=== PATIENT | female | born 1955 | race African-American/Black ===

== ENCOUNTER 2020-06-20 12:52 | Outpatient (REF) | payer MEDICAID, SELFPAY ==
[2020-06-20 14:43] LABS: Alanine Aminotransferase 25 U/L (0-31); Albumin Level 4.5 g/dL (3.5-5.0); Alkaline Phosphatase 67 U/L (39-117); Anion Gap 18 (12-20); Aspartate Amino Transferase 27 U/L (5-31); Bilirubin Total 1.2 mg/dL (0.0-1.0); Blood Urea Nitrogen 13 mg/dL (9-16); Calcium 9.2 mg/dL (8.4-10.2); Carbon Dioxide 21 mmol/L (22-29); Chloride 106 mmol/L (96-108); Estimated Glomerular Filt Rate > 60; Glucose Random 81 mg/dL (60-115); Potassium 4.4 mmol/L (3.3-5.1); Sodium 141 mmol/L (135-145); Total Protein 7.3 g/dL (6.5-8.0)
[2020-06-20 14:52] LABS: Free T4 (Free Thyroxine) 0.76 ng/dL (0.71-1.85); Thyroid Stimulating Hormone 3.14 uIU/mL (0.32-4.0)
== END 2020-06-20 12:53 | disposition home or self-care (01) ==
LOC: HO.10HDL 12:52
PROVIDERS: Visit Provider Internal Medicine
DX: I25.10 Atherosclerotic heart disease of native coronary artery without angina pectoris (principal); E78.00 Pure hypercholesterolemia, unspecified; I10 Essential (primary) hypertension
CPT/HCPCS: 36415; 80053; 84439; 84443

== ENCOUNTER 2020-12-06 12:27 | Outpatient (REF) | payer MEDICAID, SELFPAY ==
--- NOTE | ~2020-12-06 | XR_ITS ---
EXAMINATION: XR CHEST CLINICAL INFORMATION: Cough. COMPARISON: Chest radiograph dated 08/13/2007. TECHNIQUE: 2 views of the chest were obtained. FINDINGS: No focal airspace consolidation. No pleural effusion or pneumothorax. Stable cardiomediastinal silhouette. Sternal wires and mediastinal surgical clips are redemonstrated. No acute osseous abnormality. XR/XR chest 2V IMPRESSION: No acute cardiopulmonary findings.
[2020-12-06 14:00] LABS: MANUAL DIFF FLAG NO
[2020-12-06 14:24] LABS: Alanine Aminotransferase 27 U/L (0-31); Albumin Level 4.6 g/dL (3.5-5.0); Alkaline Phosphatase 76 U/L (39-117); Anion Gap 15 (12-20); Aspartate Amino Transferase 24 U/L (5-31); Bilirubin Total 1.5 mg/dL (0.0-1.0); Blood Urea Nitrogen 13 mg/dL (9-16); Calcium 9.4 mg/dL (8.4-10.2); Carbon Dioxide 24 mmol/L (22-29); Chloride 107 mmol/L (96-108); Cholesterol 166 mg/dL; Estimated Glomerular Filt Rate > 60; Glucose Random 81 mg/dL (60-115); HDL Cholesterol 61 mg/dL; LDL Cholesterol Calculated 88 mg/dl; Potassium 4.1 mmol/L (3.3-5.1); Sodium 142 mmol/L (135-145); Triglycerides 85 mg/dL
[2020-12-06 14:41] LABS: Basophils Percent Auto 0.8 % (0-2); Eosinophils Absolute Auto 0.1 X10*3/uL (0.0-0.4); Eosinophils Percent Auto 1.8 % (0-4); Hematocrit 41.8 % (37-47); Hemoglobin 13.9 g/dl (12.0-16.0); Imm Gran Abs Auto 0.01 X10*3/uL (0.00-0.03); Imm Gran Pct Auto 0.3 % (0.0-0.4); Lymphocytes Percent Auto 51.3 % (20-40); Mean Corpuscular HGB Conc 33.3 g/dl (31.0-35.0); Mean Corpuscular Hemoglobin 30.5 pg (27.0-33.0); Mean Corpuscular Volume 91.9 fL (80-98); Mean Platelet Volume 10.4 fL (9.4-12.3); Monocytes Absolute Auto 0.3 X10*3/uL (0.1-1.2); Monocytes Percent Auto 7.3 % (2-11); Neutrophils Absolute Auto 1.5 X10*3/uL (2.0-8.3); Neutrophils Percent Auto 38.5 % (45-73); Platelet Count 195 X10*3/uL (160-400); Red Blood Count 4.55 X10*6/uL (4.20-5.50); Red Cell Distribution Width 12.1 % (11.0-16.0); White Blood Count 3.8 X10*3/uL (4.8-10.8)
[2020-12-06 14:47] LABS: Free T4 (Free Thyroxine) 0.83 ng/dL (0.71-1.85); Thyroid Stimulating Hormone 1.68 uIU/mL (0.32-4.0)
[2020-12-06 14:50] LABS: Vitamin B12 726 pg/mL (200-900)
== END 2020-12-06 12:28 | disposition home or self-care (01) ==
LOC: HO.10HDL 12:27
PROVIDERS: Visit Provider Internal Medicine
DX: R05 Cough (principal); I25.10 Atherosclerotic heart disease of native coronary artery without angina pectoris; E78.00 Pure hypercholesterolemia, unspecified; E03.9 Hypothyroidism, unspecified; M19.90 Unspecified osteoarthritis, unspecified site
CPT/HCPCS: 36415; 71046; 80053; 80061; 82607; 84439; 84443; 85025

== ENCOUNTER 2021-05-10 15:31 | Outpatient (REF) | payer MEDICAID, SELFPAY ==
--- NOTE | ~2021-05-10 | XR_ITS ---
EXAMINATION: XR SHOULDER, RIGHT CLINICAL INFORMATION: Right shoulder pain COMPARISON: None TECHNIQUE: The right shoulder is imaged in 4 views. FINDINGS: There is no fracture, dislocation, destructive process. Glenohumeral joint is normal. The acromioclavicular alignment is normal. There is spurring from the inferior acromion and the inferior acromioclavicular joint which may place patient at risk for impingement and rotator cuff degeneration. There are no visible rotator cuff calcifications. Sternotomy wires and mediastinal clips are noted chest. XR/XR shoulder RT min 2V IMPRESSION: Normal right shoulder.
== END 2021-05-10 15:32 | disposition home or self-care (01) ==
LOC: HO.XRAY 15:31
PROVIDERS: PCP Internal Medicine; Visit Provider Internal Medicine
DX: M25.511 Pain in right shoulder (principal)
CPT/HCPCS: 73030

== ENCOUNTER 2022-01-28 13:09 | Outpatient (REF) | payer MEDICAID, SELFPAY | END 2022-01-28 13:10 | disposition home or self-care (01) | LOC: HO.10HDL 13:09 | PROVIDERS: Visit Provider Internal Medicine | DX: Z13.89 Encounter for screening for other disorder (principal) ==

== ENCOUNTER 2022-05-07 12:51 | Outpatient (REF) | payer MEDICARE, MEDICAID, SELFPAY ==
[2022-05-07 13:36] LABS: MANUAL DIFF FLAG NO
[2022-05-07 13:39] LABS: Basophils Percent Auto 0.8 % (0-2); Eosinophils Absolute Auto 0.2 X10*3/uL (0.0-0.4); Eosinophils Percent Auto 4.5 % (0-4); Hematocrit 42.1 % (37.0-47.0); Hemoglobin 14.1 g/dl (12.0-16.0); Imm Gran Abs Auto 0.02 X10*3/uL (0.00-0.03); Imm Gran Pct Auto 0.6 % (0.0-0.4); Lymphocytes Absolute Auto 1.7 X10*3/uL (1.2-4.9); Lymphocytes Percent Auto 46.8 % (20-40); Mean Corpuscular HGB Conc 33.5 g/dl (31.0-35.0); Mean Corpuscular Hemoglobin 30.7 pg (27.0-33.0); Mean Corpuscular Volume 91.7 fL (80.0-98.0); Mean Platelet Volume 9.9 fL (9.4-12.3); Monocytes Absolute Auto 0.3 X10*3/uL (0.1-1.2); Monocytes Percent Auto 8.1 % (2-11); Neutrophils Absolute Auto 1.4 x10*3/uL (2.0-8.3); Neutrophils Percent Auto 39.2 % (45-73); Platelet Count 177 X10*3/uL (160-400); Red Blood Count 4.59 X10*6/uL (4.20-5.50); White Blood Count 3.6 X10*3/uL (4.8-10.8)
[2022-05-07 14:28] LABS: Alanine Aminotransferase 30 U/L (0-31); Albumin Level 4.1 g/dL (3.5-5.0); Alkaline Phosphatase 75 U/L (39-117); Anion Gap 14 (12-20); Aspartate Amino Transferase 30 U/L (5-31); Bilirubin Total 1.2 mg/dL (0.0-1.0); Blood Urea Nitrogen 13 mg/dL (9-16); Calcium 9.1 mg/dL (8.4-10.2); Carbon Dioxide 24 mmol/L (22-29); Chloride 110 mmol/L (96-108); Estimated Glomerular Filt Rate > 60; Glucose Random 84 mg/dL (60-115); Potassium 4.2 mmol/L (3.3-5.1); Sodium 144 mmol/L (135-145); Total Protein 6.4 g/dL (6.5-8.0)
[2022-05-07 14:38] LABS: Free T4 (Free Thyroxine) 0.83 ng/dL (0.71-1.85); Thyroid Stimulating Hormone 2.48 uIU/mL (0.32-4.0)
== END 2022-05-07 12:52 | disposition home or self-care (01) ==
LOC: HO.10HDL 12:51
PROVIDERS: Visit Provider Internal Medicine
DX: I25.10 Atherosclerotic heart disease of native coronary artery without angina pectoris (principal); I10 Essential (primary) hypertension; E78.00 Pure hypercholesterolemia, unspecified; E03.9 Hypothyroidism, unspecified
CPT/HCPCS: 36415; 80053; 84439; 84443; 85025

== ENCOUNTER 2022-08-12 12:38 | Outpatient (REF) | payer MEDICARE, MEDICAID, SELFPAY ==
[2022-08-12 13:44] LABS: MANUAL DIFF FLAG NO
[2022-08-12 13:57] LABS: Basophils Percent Auto 0.7 % (0-2); Eosinophils Absolute Auto 0.1 X10*3/uL (0.0-0.4); Eosinophils Percent Auto 2.7 % (0-4); Hematocrit 43.7 % (37.0-47.0); Hemoglobin 14.7 g/dl (12.0-16.0); Imm Gran Abs Auto 0.01 X10*3/uL (0.00-0.03); Imm Gran Pct Auto 0.2 % (0.0-0.4); Lymphocytes Absolute Auto 1.8 X10*3/uL (1.2-4.9); Lymphocytes Percent Auto 44.6 % (20-40); Mean Corpuscular HGB Conc 33.6 g/dl (31.0-35.0); Mean Corpuscular Hemoglobin 31.1 pg (27.0-33.0); Mean Corpuscular Volume 92.6 fL (80.0-98.0); Mean Platelet Volume 10.2 fL (9.4-12.3); Monocytes Absolute Auto 0.3 X10*3/uL (0.1-1.2); Monocytes Percent Auto 7.6 % (2-11); Neutrophils Absolute Auto 1.8 x10*3/uL (2.0-8.3); Neutrophils Percent Auto 44.2 % (45-73); Platelet Count 185 X10*3/uL (160-400); Red Blood Count 4.72 X10*6/uL (4.20-5.50); Red Cell Distribution Width 12.1 % (11.0-16.0); White Blood Count 4.1 X10*3/uL (4.8-10.8)
[2022-08-12 14:33] LABS: Alanine Aminotransferase 27 U/L (0-31); Albumin Level 4.3 g/dL (3.5-5.0); Alkaline Phosphatase 63 U/L (39-117); Anion Gap 12 (12-20); Aspartate Amino Transferase 27 U/L (5-31); Bilirubin Total 1.8 mg/dL (0.0-1.0); Blood Urea Nitrogen 14 mg/dL (9-16); Calcium 9.4 mg/dL (8.4-10.2); Carbon Dioxide 25 mmol/L (22-29); Chloride 109 mmol/L (96-108); Cholesterol 191 mg/dL; Estimated Glomerular Filt Rate > 60; Glucose Fasting 81 mg/dL (60-99); HDL Cholesterol 61 mg/dL; LDL Cholesterol Calculated 110 mg/dl; Potassium 4.1 mmol/L (3.3-5.1); Sodium 142 mmol/L (135-145); Total Protein 6.8 g/dL (6.5-8.0); Triglycerides 103 mg/dL
[2022-08-12 14:49] LABS: Free T4 (Free Thyroxine) 0.79 ng/dL (0.71-1.85); Thyroid Stimulating Hormone 2.19 uIU/mL (0.32-4.0)
== END 2022-08-12 12:39 | disposition home or self-care (01) ==
LOC: HO.10HDL 12:38
PROVIDERS: Visit Provider Internal Medicine
DX: I25.10 Atherosclerotic heart disease of native coronary artery without angina pectoris (principal); E03.9 Hypothyroidism, unspecified; E78.00 Pure hypercholesterolemia, unspecified
CPT/HCPCS: 36415; 80053; 80061; 84439; 84443; 85025

== ENCOUNTER 2023-06-15 12:22 | Outpatient (REF) | payer MEDICARE, SELFPAY ==
[2023-06-15 14:47] LABS: Anion Gap 11 (12-20); Blood Urea Nitrogen 14 mg/dL (9-16); Calcium 9.1 mg/dL (8.4-10.2); Carbon Dioxide 27 mmol/L (22-29); Chloride 108 mmol/L (96-108); Estimated Glomerular Filt Rate > 60; Glucose Random 81 mg/dL (60-115); Sodium 142 mmol/L (135-145)
== END 2023-06-15 12:23 | disposition home or self-care (01) ==
LOC: HO.10HDL 12:22
PROVIDERS: Visit Provider Internal Medicine
DX: I25.10 Atherosclerotic heart disease of native coronary artery without angina pectoris (principal); I10 Essential (primary) hypertension; E78.00 Pure hypercholesterolemia, unspecified
CPT/HCPCS: 36415; 80048

== ENCOUNTER 2023-07-07 09:22 | Outpatient (AMB) | payer MEDICARE, SELFPAY ==
--- NOTE | 2023-07-07 09:22 | A.OFFVIS_ITS ---
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 Patient reports her pain has been going on for about a month and is a 8 on the 1-10 pain scale. She states her left is worse and is taking motrin and f using heat for the pain and denies surgery and injections. She did fall twisting the Left knee about 5 years ago. The patient does question whether or not a supplement such as Instaflex could give her some relief. Allergies animal dander Allergy (Unknown, Verified 07/07/23 09:40) Unknown lisinopril Allergy (Unknown, Verified 07/07/23 09:40) Unknown mite-Dermatophagoides farinae, hao [dust mite - [place]] Allergy (Unknown, Verified 07/07/23 09:40) Unknown Medication List - Last Reconciled 07/07/23 by Carlos Patel MD acetaminophen 325 mg PO QID PRN amlodipine 5 mg PO DAILY aspirin 81 mg PO DAILY levothyroxine 25 mcg PO DAILY rosuvastatin 10 mg PO DAILY [facility] Medical History (Updated 07/03/23 @ 12:52 by Carlos Patel MD) Hypothyroid Elevated cholesterol Right bundle branch block (RBBB) HTN (hypertension) CAD (coronary artery disease) GERD (gastroesophageal reflux disease) Surgical History (Updated 03/20/23 @ 13:24 by Jana Odom RN) Hx of cataract surgery History of back surgery History of esophagogastroduodenoscopy (EGD) H/O colonoscopy Social History (Updated 07/07/23 @ 09:41 by Audrey Jasmine CMA) Current occupational status: employed 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 Physical Exam Vital Signs: BMI result Body Mass Index 35.2 Const Other: Well-nourished well-developed very friendly female awake alert and oriented x3 in no acute distress Extrem Other: Bilateral lower extremity examination shows good capillary refill, no skin lesions noted, normal sensation light touch Bilateral knee examination shows minimal effusion, minimal crepitus range of motion, tenderness along her medial joint lines, positive Radha's tests, no instability Results Reviewed Results Reviewed: X-rays of the patient's bilateral knee show mild joint space narrowing, no acute bony abnormalities Assessment & Plan Assessment & Plan (1) Right knee pain: Code(s): M25.561 - Pain in right knee (2) Left knee pain: Code(s): M25.562 - Pain in left knee Plan Ms. Alonso presents with bilateral knee pains and mechanical symptoms due to early degenerative joint disease as well as possible medial meniscus tearing. I had a lengthy discussion with the patient regarding the treatment options. She wishes to hold off on an injection for now. The patient states that she will look into taking a supplement such as Instaflex. I have no problem with this. The patient will follow up with me on an as-needed basis. Feel free to call me at any time should questions regarding her orthopedic management arise. I spent 22 minutes in reviewing the patient's records and imaging studies, seeing the patient and documenting in the medical record. Orders: Orders XR knee LT 3V Today M25.562 - Pain in left knee XR knee RT 3V Today M25.561 - Pain in right knee Coding Level of Care Code New Pt Level 2 (34135) Diagnoses Right knee pain M25.561 Left knee pain M25.562
[2023-07-07 09:37] VITALS: BMI 35.2
== END 2023-07-07 10:03 | disposition home or self-care (01) ==
PROVIDERS: PCP Internal Medicine; Visit Provider Orthopaedic Surgery
DX: M25.561 Pain in right knee (principal); M25.562 Pain in left knee
CPT/HCPCS: 99202

== ENCOUNTER 2023-07-07 14:19 | Outpatient (REF) | payer MEDICARE, SELFPAY ==
--- NOTE | ~2023-07-07 | XR_ITS ---
EXAMINATION: XR BILATERAL KNEES CLINICAL INFORMATION: Pain in bilateral knees. COMPARISON: MRI right knee 01/09/2017. Radiograph right knee 11/28/2016. TECHNIQUE: 3 views of each knee. FINDINGS: RIGHT KNEE: No significant joint effusion. Small tricompartmental osteophytes. Moderate narrowing of the lateral compartment. Mild narrowing of the medial compartment. Narrowing of the patellofemoral compartment. LEFT KNEE: Moderate narrowing of the lateral compartment. Mild narrowing of the medial compartment. Small tricompartmental osteophytes. Small joint effusion. XR/XR knee RT 3V IMPRESSION: [id number]-sw-oltatnkk degenerative changes in bilateral knees.
--- NOTE | ~2023-07-07 | XR_ITS ---
EXAMINATION: XR BILATERAL KNEES CLINICAL INFORMATION: Pain in bilateral knees. COMPARISON: MRI right knee 01/09/2017. Radiograph right knee 11/28/2016. TECHNIQUE: 3 views of each knee. FINDINGS: RIGHT KNEE: No significant joint effusion. Small tricompartmental osteophytes. Moderate narrowing of the lateral compartment. Mild narrowing of the medial compartment. Narrowing of the patellofemoral compartment. LEFT KNEE: Moderate narrowing of the lateral compartment. Mild narrowing of the medial compartment. Small tricompartmental osteophytes. Small joint effusion. XR/XR knee LT 3V IMPRESSION: Ycwm-[id number]-[id number] degenerative changes in bilateral knees.
== END 2023-07-07 14:20 | disposition home or self-care (01) ==
LOC: HO.HOSX 14:19
PROVIDERS: Visit Provider Orthopaedic Surgery
DX: M25.561 Pain in right knee (principal); M25.562 Pain in left knee
CPT/HCPCS: 73562; 99202

== ENCOUNTER 2024-07-29 14:38 | Outpatient (AMB) | payer MEDICARE, SELFPAY ==
--- NOTE | 2024-07-29 12:50 | A.OFFPC_ITS ---
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: No Accompanied by: Family/Other Allergies animal dander Allergy (Unknown, Verified 07/29/24 14:48) Unknown lisinopril Allergy (Unknown, Verified 07/29/24 14:48) Unknown mite-Dermatophagoides farinae, hao [dust mite - [place]] Allergy (Unknown, Verified 07/29/24 14:48) Unknown Tobacco use date assessed: 07/29/24 Fall risk assessment: No Falls in past year Last assessed Fall Risk: 07/29/24 Dental Screening Dental Screen Date: 07/29/24 Did you have a dental visit in the last 12 months?: Yes Did you have a dental problem in the last 6 months where you did not have access to dental care?: No Was dental information given to patient?: Patient has dentist HPI HPI Comments History of Present Illness Details 69-year-old female with history of hyper tension, coronary artery disease, hyperlipidemia, osteoarthritis of the knees bilaterally presents to the office today for routine follow-up. She reports compliance with her medication. Due for routine labs. Reports following with Cardiology at [facility] and continues on aspirin and rosuvastatin for her coronary artery disease and hyperlipidemia. She denies any ongoing chest pain, shortness of breath, lightheadedness, palpitations. She has noted areas of hypopigmentation on her arms and lower legs bilaterally as well as itching in her moles which are numerous, ring the chest and back. She also feels she has a ?cyst? on her back and she would like evaluated. She is also looking for handicap placard due to osteoarthritis in the knees bilaterally which does require use of a cane for ambulation. She has followed up with orthopedics who is recommending replacement but she is not ready to schedule this. [facility] Medical History (Updated 07/29/24 @ 15:47 by DRISS Atkins) Osteoarthritis of knees, bilateral Hypothyroid Elevated cholesterol Right bundle branch block (RBBB) HTN (hypertension) CAD (coronary artery disease) GERD (gastroesophageal reflux disease) Surgical History (Updated 07/29/24 @ 15:17 by DRISS Atkins) Hx of CABG Hx of cataract surgery History of back surgery History of esophagogastroduodenoscopy (EGD) H/O colonoscopy Family History (Updated 07/29/24 @ 14:52 by TAWANDA Hernandez) Mother Lung cancer COPD (chronic obstructive pulmonary disease) High blood pressure Diabetes Pacemaker Father No problems noted. 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 1. Little interest or pleasure in doing things: not at all 2. Feeling down, depressed, or hopeless: not at all 3. Trouble falling or staying asleep, or sleeping too much: not at all 4. Feeling tired or having little energy: not at all 5. Poor appetite or overeating: not at all 6. Feeling bad about yourself - or that you are a failure or have let yourself or your family down: not at all 7. Trouble concentrating on things, such as reading the newspaper or watching television: not at all 8. Moving or speaking so slowly that other people could have noticed. Or the opposite - being so fidgety or restless that you have been moving around a lot more than usual: not at all 9. Thoughts that you would be better off or of hurting yourself in some way: not at all Total score: 0 Source: Developed by Drs. Fransico Arenas, Juliana Campos, Cedric Sanchez and colleagues, with an educational pratik from [employer]. Thrive Questionnaire Date Thrive assessed: 07/29/24 I am a: Patient What is your living situation today?: I have a steady place to live Within the past 12 months, did the food you bought not last and you didn't have the money to get more?: Never true Within the past 12 months, did you worry whether your food would run out before you got money to buy more?: Never true Do you have trouble paying for medicines?: No Do you have trouble getting transportation to medical appointments?: No Do you have trouble paying your heating and electricity bill?: No Do you have trouble taking care of your child, family member or friend?: No Do you have trouble with day-to-day activities such as bathing, preparing meals, shopping, managing finances, etc.?: No Are you currently unemployed and looking for a job?: No Are you interested in more education?: No Please select the resources that you would like help with: None THRIVE Score: 0 AUDIT C Alcohol Use Questionnaire (AUDIT-C) 1. How often do you have a drink containing alcohol?: Never Total Score: 0 RAMONA-7 AMB Questionnaire RAMONA-7 Date RAMONA - 7 assessed: 07/29/24 Feeling nervous, anxious, or on edge: 0 = Not at all Not being able to stop or control worryin = Not at all Worrying too much about different things: 0 = Not at all Trouble relaxin = Not at all Being so restless that it is hard to sit still: 0 = Not at all Becoming easily annoyed or irritable: 0 = Not at all Feeling afraid as if something awful might happen: 0 = Not at all Total RAMONA-7 score (0-4 normal; 5-9 mild; 10-14 moderate; 15-21 severe): 0 Source: Developed by Drs. Fransico Arenas, Juliana Campos, Cedric Sanchez and colleagues, with an educational pratik from [employer]. Review of Systems Const All systems reviewed & are unremarkable except as noted in HPI and below Physical exam (Primary Care) Vital Signs: Last Vital Signs Temp 98.0 F 07/29/24 14:54 Pulse 62 07/29/24 14:54 Resp 16 07/29/24 14:54 BP 126/72 07/29/24 14:54 Pulse Ox 98 07/29/24 14:54 Oxygen Delivery Method Room Air 07/29/24 14:54 BMI result Body Mass Index 35.7 Tobacco/Smoking Status: Tobacco use Status Tobacco use date assessed 07/29/24 07/29/24 14:57 Patient Tobacco Use Status Never used Tobacco 07/29/24 14:53 PHQ-9: PHQ-9 Score PHQ-9: Total score 0 07/29/24 15:31 Thrive Assessment: Date of Thrive Assessment Date Thrive assessed 07/29/24 07/29/24 14:57 Const Other: Constitutional - Awake and Alert, No apparent distress Eyes - PERRL Extremities - no edema Skin - Warm/Dry. Numerous moles covering the chest, neck, and back. Two giant comedos of the back Neurological - Alert & oriented x3 Psychological - Appropriate affect Coding Level of Care Code Tele New Pt Level 4 (31995) Complex EM visit Add On G2211 Diagnoses HTN (hypertension) I10 Hypothyroid E03.9 Elevated cholesterol E78.00 CAD (coronary artery disease) I25.10 Hyperbilirubinemia E80.6 Hypopigmentation L81.9 Giant comedo L70.0 Change in mole D22.9 Assessment & Plan Assessment & Plan (1) HTN (hypertension): Code(s): I10 - Essential (primary) hypertension Category: Medical Plan: Controlled with blood pressure 126/72 in the office today. Continue amlodipine 5 mg daily. Low-sodium diet advised. (2) Hypothyroid: Code(s): E03.9 - Hypothyroidism, unspecified Category: Medical Plan: TSH level ordered. Continue levothyroxine 25 mcg daily, dose to be adjusted pending results of study. (3) Elevated cholesterol: Code(s): E78.00 - Pure hypercholesterolemia, unspecified Category: Medical Plan: Lipid profile ordered. Continue rosuvastatin and recommend low-fat diet. 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 Continue following with cardiology (reports [facility]) as scheduled. Continue baby aspirin and rosuvastatin (5) Hyperbilirubinemia: Code(s): E80.6 - Other disorders of bilirubin metabolism Category: Medical Plan: Liver panel ordered for reassessment. Further plan pending results including possible imaging. (6) Hypopigmentation: Code(s): L81.9 - Disorder of pigmentation, unspecified Category: Medical Plan: Appears consistent with idiopathic guttate hypomelanosis. No intervention required otehr than skin protection in sunlight. Can follow up with dermatology for additional concerns (7) Giant comedo: Code(s): L70.0 - Acne vulgaris Category: Medical Plan: Recommend follow up with dermatology for excision (8) Change in mole: Code(s): D22.9 - Melanocytic nevi, unspecified Category: Medical Plan: Follow-up with Dr. Calhoun or [place] [facility] for further evaluation of skin/mole changes and skin check. Plan Follow-up in the office in 3 months. Labs to be completed today. Follow-up with Dermatology. Continue medications as prescribed. Orders: Orders Hemoglobin A1c Today E03.9 - Hypothyroidism, unspecified, E78.00 - Pure hypercholesterolemia, unspecified, E80.6 - Other disorders of bilirubin metabolism, I10 - Essential (primary) hypertension, I25.10 - Atherosclerotic heart disease of [place] coronary artery without angina pectoris Lipid Panel Today E03.9 - Hypothyroidism, unspecified, E78.00 - Pure hypercholesterolemia, unspecified, E80.6 - Other disorders of bilirubin metabolism, I10 - Essential (primary) hypertension, I25.10 - Atherosclerotic heart disease of [place] coronary artery without angina pectoris TSH reflex Free T4 Today E03.9 - Hypothyroidism, unspecified, E78.00 - Pure hypercholesterolemia, unspecified, E80.6 - Other disorders of bilirubin metabolism, I10 - Essential (primary) hypertension, I25.10 - Atherosclerotic heart disease of [place] coronary artery without angina pectoris Basic Metabolic Panel Today E03.9 - Hypothyroidism, unspecified, E78.00 - Pure hypercholesterolemia, unspecified, E80.6 - Other disorders of bilirubin metabolism, I10 - Essential (primary) hypertension, I25.10 - Atherosclerotic heart disease of [place] coronary artery without angina pectoris Complete Blood Count Auto Diff Today E03.9 - Hypothyroidism, unspecified, E78.00 - Pure hypercholesterolemia, unspecified, E80.6 - Other disorders of bilirubin metabolism, I10 - Essential (primary) hypertension, I25.10 - Atherosclerotic heart disease of [place] coronary artery without angina pectoris Liver Panel Today E03.9 - Hypothyroidism, unspecified, E78.00 - Pure hypercholesterolemia, unspecified, E80.6 - Other disorders of bilirubin metabolism, I10 - Essential (primary) hypertension, I25.10 - Atherosclerotic heart disease of [place] coronary artery without angina pectoris Medications: New diclofenac sodium 3% Apply 1 inch topically to bilateral knees 1 appl topical BID 100 grams 3RF amlodipine 5 mg PO DAILY 90 tabs 1RF
--- OUTSIDE RECORDS SUMMARY | 2024-07-29 14:39 | XMS_ITS | Patient Health Record ---
Author Organization [facility] Address [address] [place] [phone] Care Team Providers Care Investigative Writer Name Role Phone Berny Castillo MD Primary Care Provider Rickey Unger Jr Unavailable [phone] Allergies Allergen (clinical drug ingredient) Drug/Non Drug Allergy documented on EMR Reaction Allergy Type Onset Date Status Dust Mites Unknown Allergy Active Cat dander Cat Dander Unknown Allergy Active lisinopril Lisinopril Unknown Drug Allergy Activ e Dander dander (uncoded) Unknown Allergy Act speedy Reason For Referral No Information Medications Medication SIG (Take, Route, Frequency, Duration) Notes Start Date End Date Status Levothyroxine Sodium 25 MCG TAKE 1 TABLE T BY MOUTH EVERY DAY Oral for 90 Active amLODIPine Besylate 5 MG Oral for 90 Active Rosuvastatin Calcium 10 MG TAKE 1 TABLET BY MOUTH EVERY DAILY Diagnosis Unavailable Oral for 90 Active Crissy Vitamin C-Flavonoids - as directed Orally 12/10/2022 Active Tylenol 325 MG 1 tablet as needed O rally every 4 hrs Active Aspir-Low 81 MG 1 tablet Orally Once a day for 30 day(s) Active Immunizations Vaccine Route Administration Date Status Comme nts Influenza Unknown 02/05/2021 Administered Influenza Unknown 02/11/2022 Administered Social History Tobacco Use: Social History Observation Description Date Details (start date - stop date) Never Smoker NA - NA Tobacco Use/Smoking Question Answer Notes Patient is a nonsmoker Alcohol Screen Question Answer Notes Did you have a drink containing alcohol in the p ast year? No Points 0 Interpretation Negative Problems Problem Type SNOMED Code ICD Code Onset Dates Problem Status W/U Status Risk Notes Problem 769626227 Colon cancer screening (Z12.11) Active confirmed Problem 39725004 Rectal bleeding (K62.5) Active confirmed Problem 689730222 Personal history of colonic polyps (Z86.010) Active confirmed Problem 19874087 Rectal pain (K62.89) Active confirmed Encounters Encounter Location Date Provider Diagnosis [facility] [address] [place] [address] 05/13/2024 Rickey Byrd Jr Plan Of Treatment Future Test Test Name Order Date COLONOSCOPY 11/20/2021 COLONOSCOPY 12/10/2022 Insurance Providers Payer Name Payer Address Payer Phone Subscriber Number Group Number Insured Name Patient Relationship to Insured Coverage Start Date Coverage End Date MEDICARE OF [place] [address] [facility] [place] [address] [phone] [id number] Maryan Alonso Self - patient is the insured Medical (General) History Medical History History ICD Code Coronary artery disease status post CABG high blood pressure Cataracts Right bundle-branch block Colonoscopy 06/05, hyperplastic polyp x1 Hypothyroidism Hyperlipidemia Gastroesophageal reflux dise ase, EGD 06/05, no H. pylori or Darden's esophagus Surgical History Surgery Date(Month/Year) Coronary artery bypass grafting back surgery cateract surgery
--- OUTSIDE RECORDS SUMMARY | 2024-07-29 14:39 | XMS_ITS ---
Author Organization [facility] Address [address] [place] [phone] Care Team Providers Care Outbound Sales Advisor Name Role Phone Berny Castillo MD Primary Care Provider Rickey Unger Jr Unavailable [phone] REASON FOR VISIT CANCEL APPT Encounters Encounter Location Date Provider Diagnosis [facility] [address] [place] [phone] 05/13/2024 Rickey Byrd Jr Plan Of Treatment No Information Progress Notes * Maryan ALONSOoreDOB: (69 yo F)Acc No.[id number]:05/13/2024 Patient:?Seema Alonsothifrancisco javier Barry mateus :1955???Age:69 Y???Sex:Female Address:[address] [place], [address] * true * Date:? Generated for Ivette martin/Ulysses/eTransmitting on:?07/29/2024 02:39 PM EDT
--- OUTSIDE RECORDS SUMMARY | 2024-07-29 14:39 | XMS_ITS ---
Author Organization [facility] Address [address] [place] [phone] Care Team Providers Care Tobacco Stemmer Name Role Phone Berny Castillo MD Primary Care Provider Rickey Unger Jr Unavailable [phone] REASON FOR VISIT Patient presents today for a colon screening Encounters Encounter Location Date Provider Diagnosis [facility] [address] [facility] [address] [place] [phone] 05/16/2024 Rickey Byrd Jr Plan Of Treatment No Information Progress Notes * Maryan ALONSOoreDOB: (69 yo F)Acc No.[id number]:05/16/2024 Progress Notes Patient:?Maryan ALONSO Provider:?Rickey Byrd MD :1955???Age:69 Y???Sex:Female D ate:05/16/2024 Address:[address] [place], [place] [id number] Pcp:Berny Castillo MD Subjective: * Chief Complaints: * ???1. Patient presents today for a colon screening. * Medical History:? Objective: * Vitals:? Assessment: Plan: * Treatment: * * The named appointment provid er may or may not be the originator of this progress note, and it is not deemed complete until electronically signed by the appointment provider. Sign off status: Pending * Provider:?Rickey Byrd MD Date:?0 05/16/2024 Generated for Ivette martin/Ulysses/eTransmitting on:?07/29/2024 02:39 PM EDT
--- OUTSIDE RECORDS SUMMARY | 2024-07-29 14:40 | XMS_ITS ---
Author Organization [facility] Address [address] [place] [phone] Care Team Providers Care Study Abroad Advisor Name Role Phone Anna COLES, Berny Primary Care Provider Rickey Unger Jr Unavailable REASON FOR VISIT Colon Cancer Screening, Rectal Pain Encounters Encounter Location Date Provider Diagnosis [facility] Outpatient [address] [place] [phone] 07/24/2023 Rickey Byrd Jr Plan Of Treatment No Information Progress Notes * Maryan ALONSO JhonnyoreDOB: (69 yo F)Acc No.[id number]:07/24/2023 COLON WITH MAC Patient:?Maryan ALONSO Provider:?Rickey Byrd MD :1955???Age:68 Y???Sex:Female D ate:07/24/2023 Address:[address] [place], [place] [phone] Pcp:Berny Castillo MD Subjective: * Chief Complaints: * ???1. Colon Cancer Screening , Rectal Pain. * Medical History:? Objective: * Vitals:? Assessment: Plan: * Treatment: * * The named appointment provid er may or may not be the originator of this progress note, and it is not deemed complete until electronically signed by the appointment provider. Sign off status: Pending * Provider:?Rickey Byrd MD Date:?0 07/24/2023 Generated for Geovannyi ng/Famookieg/eTransmitting on:?07/29/2024 02:39 PM EDT
[2024-07-29 14:54] VITALS: BP 126/72; PULSE 62; RESP 16; TEMP 36.7; O2SAT 98; BMI 35.7
== END 2024-07-29 15:38 | disposition home or self-care (01) ==
LOC: HO.HMCHD 14:38
PROVIDERS: PCP Internal Medicine; Visit Provider Physician Assistant
DX: I10 Essential (primary) hypertension (principal); E03.9 Hypothyroidism, unspecified; E78.00 Pure hypercholesterolemia, unspecified; I25.10 Atherosclerotic heart disease of native coronary artery without angina pectoris; E80.6 Other disorders of bilirubin metabolism; L81.9 Disorder of pigmentation, unspecified; L70.0 Acne vulgaris; D22.9 Melanocytic nevi, unspecified

== ENCOUNTER → 2024-07-29 14:38 | Outpatient (BNVA) | payer OTHER, MEDICARE, SELFPAY | PROVIDERS: PCP Internal Medicine; Visit Provider Physician Assistant | DX: I10 Essential (primary) hypertension (principal); E03.9 Hypothyroidism, unspecified; E78.00 Pure hypercholesterolemia, unspecified; I25.10 Atherosclerotic heart disease of native coronary artery without angina pectoris; E80.6 Other disorders of bilirubin metabolism; L81.6 Other disorders of diminished melanin formation; L70.0 Acne vulgaris; D22.9 Melanocytic nevi, unspecified; Z79.82 Long term (current) use of aspirin; Z79.899 Other long term (current) drug therapy | CPT/HCPCS: 96127; 99202 ==

== ENCOUNTER 2024-11-09 11:49 | Outpatient (REF) | payer OTHER, MEDICARE, SELFPAY ==
--- OUTSIDE RECORDS SUMMARY | 2024-11-09 13:04 | XMS_ITS | Patient Health Record ---
Author Organization [facility] Address [address] [place] [id number] Care Team Providers Care Data Clerk Name Role Phone Anna (RETIRED) Berny COLES Primary Care Provide r Rickey Ramos Jr Unavailable Allergies Allergen (clinical drug ingredient) Drug/Non Drug [...] Problem Status W/U Status Risk Notes Problem 262063649 Colon cancer screening (Z12.11) Active confirmed Problem 79365494 Rectal bleeding (K62.5) Active confirmed Problem 429064315 Personal history of colonic polyps (Z86.010) Active confirmed Problem 27868424 Rectal pain (K62.89) Active confirmed Encounters Encounter Location Date Provider Diagnosis [facility] [address] [place] [address] 05/13/2024 Rickey Byrd Jr Plan Of Treatment Future Test Test Name Order Date COLONOSCOPY 11/20/2021 COLONOSCOPY 12/10/2022 Insurance Providers Payer Name Payer Address Payer Phone Subscriber Number Group Number Insured Name Patient Relationship to Insured Coverage Start Date Coverage End Date MEDICARE OF [place] [address] [place] [place] [address] [phone] [id number] Maryan Alonso Self - patient is the [...]
[2024-11-09 13:44] LABS: MANUAL DIFF FLAG NO
[2024-11-09 13:50] LABS: Hematocrit 43.9 % (37.0-47.0); Hemoglobin 14.6 g/dl (12.0-16.0); Imm Gran Abs Auto 0.01 X10*3/uL (0.00-0.03); Imm Gran Pct Auto 0.3 % (0.0-0.4); Lymphocytes Absolute Auto 1.6 X10*3/uL (1.2-4.9); Mean Corpuscular HGB Conc 33.3 g/dl (31.0-35.0); Mean Corpuscular Hemoglobin 30.4 pg (27.0-33.0); Mean Corpuscular Volume 91.5 fL (80.0-98.0); NRBC Abs Auto 0.000 X10*3/uL (0.0-0.012); NRBC Pct Auto 0.0 /100WBC (0.0-0.2); Platelet Count 177 X10*3/uL (160-400); Red Blood Count 4.80 X10*6/uL (4.20-5.50); White Blood Count 3.7 X10*3/uL (4.8-10.8)
[2024-11-09 14:06] LABS: Hemoglobin A1C 150.8604 umol/L; Total Hemoglobin (HGBA1C) 3758.6942 umol/L
[2024-11-09 14:12] LABS: Alanine Aminotransferase 32 U/L (0-31); Albumin Level 4.4 g/dL (3.5-5.0); Alkaline Phosphatase 65 U/L (39-117); Anion Gap 12 (12-20); Aspartate Amino Transferase 36 U/L (5-31); Blood Urea Nitrogen 14 mg/dL (9-16); Calcium 9.1 mg/dL (8.4-10.2); Carbon Dioxide 26 mmol/L (22-29); Chloride 109 mmol/L (96-108); Cholesterol 202 mg/dL (<200); Estimated Glomerular Filt Rate > 60; HDL Cholesterol 57 mg/dL (>40); Potassium 4.1 mmol/L (3.3-5.1); Sodium 143 mmol/L (135-145); Total Protein 6.9 g/dL (6.5-8.0); Triglycerides 111 mg/dL (<150)
== END 2024-11-09 11:50 | disposition home or self-care (01) ==
LOC: HO.10HDL 11:49
PROVIDERS: Visit Provider Physician Assistant
DX: E80.6 Other disorders of bilirubin metabolism (principal); I25.10 Atherosclerotic heart disease of native coronary artery without angina pectoris; E78.00 Pure hypercholesterolemia, unspecified; E03.9 Hypothyroidism, unspecified; I10 Essential (primary) hypertension; Z13.1 Encounter for screening for diabetes mellitus
CPT/HCPCS: 36415; 80048; 80061; 80076; 83036; 84443; 85025